=== PATIENT | male | born 1970 | race Two or more races ===

== ENCOUNTER 2024-04-11 09:39 | Emergency (ER) | payer MEDICAID, SELFPAY ==
[2024-04-11 09:50] VITALS: BP 161/92; PULSE 82; RESP 18; TEMP 36.8; O2SAT 98; BMI 24.4
--- NOTE | 2024-04-11 09:58 | PD.EDSKIN ---
ED Skin Abcess FB-RME/HPI General Chief complaint: Skin/Abscess/Foreign Body Stated complaint: I THINK I HAVE A STAPH INFECTION Time Seen by Provider: 04/11/24 09:40 Arrival date/time: 04/11/24 09:39 53-year-old male presents to the emergency department today stating I think I have a staph infection patient reports sores to his left leg Limitations: no limitations Related Data Previous Rx's ?Medication ?Instructions ?Recorded albuterol sulfate 90 mcg/actuation 2 puff inhalation Q6H PRN 04/19/17 aerosol inhaler shortness of breath or wheezing #18 grams loratadine 10 mg tablet 10 mg PO QDAY PRN allergy symptoms 04/19/17 #30 tabs promethazine-DM 6.25 mg-15 mg/5 mL 5 ml PO Q6H PRN cough #118 mL 04/19/17 oral syrup naproxen 500 mg tablet 500 mg PO BID #20 tabs 12/04/17 clindamycin HCl 300 mg capsule 300 mg PO TID 7 days #21 caps 04/11/24 ibuprofen 800 mg tablet 800 mg PO TID PRN pain #30 tabs 04/11/24 mupirocin 2 % topical ointment 1 applic topical TID 10 days #22 04/11/24 grams Allergies Allergy/AdvReac Type Severity Reaction Status Date / Time Penicillins Allergy Unknown HIVES Unverified 12/04/17 12:18 Review of Systems Review of Systems Systems Reviewed: All systems reviewed, normal except as documented Constitutional Constitutional: Reports system reviewed and no additional complaints, except as documented, Denies fever(s) and Denies headache(s) Eyes Eyes: Reports system reviewed and no additional complaints, except as documented and Denies blurry vision ENT Ears, Nose, Mouth, and Throat: Reports system reviewed and no additional complaints, except as documented, Denies headache(s), Denies nasal congestion and Denies nasal discharge Cardiovascular Cardiovascular: Reports system reviewed and no additional complaints, except as documented, Denies chest pain and Denies dyspnea Respiratory Respiratory: Reports system reviewed and no additional complaints, except as documented, Denies chest congestion, Denies cough and Denies dyspnea Gastrointestinal Gastrointestinal: Reports system reviewed and no additional complaints, except as documented and Denies abdominal pain Integumentary/Breasts Skin/Breast: Reports system reviewed and no additional complaints, except as documented, Denies rash and Reports other (Skin sores left leg) Neurologic Neurologic: Reports system reviewed and no additional complaints, except as documented, Reports as per HPI and Denies headache(s) Past Medical History Past Medical History NEUROLOGIC: Negative Neurological Disorders CARDIAC: Negative Cardiac Disorders Social History SMOKING STATUS: Never smoker SUBSTANCE USE: marijuana ED Exam General Limitations: Present no limitations General appearance: Present alert and in no apparent distress Head Head exam: Present atraumatic Eye Eye exam: Present normal appearance, PERRL and EOMI ENT ENT exam: Present normal exam, normal oropharynx and mucous membranes moist Neck Neck exam: Present normal inspection, full ROM and trachea midline Chest Chest inspection: Present normal inspection and symmetric chest wall rise Respiratory Respiratory exam: Present normal lung sounds bilaterally Cardiovascular Cardiovascular exam: Present regular rate, normal rhythm and normal heart sounds Abdominal Exam Abdominal exam: Present soft and normal bowel sounds Extremities Exam Extremities exam: Present normal inspection and full ROM Back Exam Back exam: Present normal inspection and full ROM Neurological Exam Neurological exam: Present alert, oriented X3 and CN II-XII intact Psychiatric Psychiatric exam: Present normal affect and normal mood Skin Skin exam: Present warm, dry and other (Skin sores left leg) Course Quality Measures none Vital Signs Vital signs: Vital Signs Temperature 98.3 F 04/11/24 09:50 Pulse Rate 82 04/11/24 09:50 Respiratory Rate 18 04/11/24 09:50 Blood Pressure 161/92 H 04/11/24 09:50 Pulse Oximetry (%) 98 04/11/24 09:50 Oxygen Delivery Method Room Air 04/11/24 09:50 O2 saturation 98% room air within normal limits Skin / Abscess / Foreign Body MDM Narrative MDM Narrative:: 53-year-old male presents to the emergency department today stating I think I have a staph infection patient reports sores to his left leg On exam patient well-appearing patient does not appear ill or toxic in no acute distress On exam patient appears to have skin sores which are infectious patient will be treated with course of antibiotics Patient discharged home in no distress to follow-up with primary care doctor in the next 24 to 48 hours and for any worsening symptoms to return to the ER immediately Patient data External records reviewed:: [facility] previous records Clinical information provided by:: patient Social determinants that could affect healthcare access:: none Patient has the following chronic illnesses:: None How is presenting disease/condition affected by chronic disease/condition?: no chronic disease Evaluation data The following diagnostics were reviewed and interpreted by me:: other (specify) (N/A) Lab and/or radiology exams considered but not ordered:: Consider not ordered Interpretation Summary: N/A Medications / Prescriptions Medications or Prescriptions considered but not ordered:: Given Medication administrations:: Given Consultations Consultation(s) initiated? (list below): No Diagnosis Skin/Abscess Differential Diagnosis: abscess of skin or subcutaneous tissue, urticaria, cellulitis and insect bites Most likely diagnosis given after review of the tests above:: Skin sore Admission Indicated Admission indicated?: not indicated Admission Request Was there a request for admission?: No Disposition Plan Disposition Plan: Discharge Discharge Attestation Discharge Attestation: The patient and all family members were given an opportunity to ask questions and understood the discharge instructions. Discharge instructions specifically effects, indications for sooner follow up or return to the emergency department, and the expected course of current diagnosis. Patient condition: Stable Discharge Plan Plan Patient Disposition: HOME (Self Care) Disposition Comment: Stable Prescriptions/Referrals Prescriptions/Med Rec: New clindamycin HCl 300 mg capsule 300 mg PO TID 7 Days Qty: 21 0RF ibuprofen 800 mg tablet 800 mg PO TID PRN (Reason: pain) Qty: 30 0RF mupirocin 2 % ointment 1 applic topical TID 10 Days Qty: 22 0RF No Action promethazine-DM 6.25-15 mg/5 mL syrup 5 ml PO Q6H PRN (Reason: cough) Qty: 118 0RF albuterol sulfate 90 mcg/actuation HFA aerosol inhaler 2 puff INH Q6H PRN (Reason: shortness of breath or wheezing) Qty: 18 0RF Rx Instructions: administer with spacer loratadine 10 mg tablet 10 mg PO QDAY PRN (Reason: allergy symptoms) Qty: 30 0RF naproxen 500 mg tablet 500 mg PO BID Qty: 20 0RF Problem List Clinical Impression: Skin sore Patient/Caregiver Discharge Instructions Additional Instructions: Please follow up with your primary care doctor in the next 24-48hrs for any worsening symptoms return here immediately Print Language: Indian Stand Alone Forms: Shanna Award Info., Patient Portal Info Letter PA/[employer] GENERAL Supervising Physician PA/LUIS Supervising Physician: Dr. Degroot
== END 2024-04-11 10:45 | disposition home or self-care (01) ==
PROVIDERS: Emergency Provider Emergency Medicine; PCP Family Medicine
DX: L98.9 Disorder of the skin and subcutaneous tissue, unspecified (principal)
CPT/HCPCS: 99281

== ENCOUNTER 2024-06-19 07:35 | Emergency (ER) | payer MEDICAID, SELFPAY ==
[2024-06-19 07:56] VITALS: BP 132/91; PULSE 66; RESP 16; TEMP 37.1; O2SAT 97
[2024-06-19 07:57] VITALS: BMI 25.0
--- NOTE | 2024-06-19 08:05 | PD.EDMALE ---
ED Male Genitalurinary RME/HPI General Chief complaint: Urogenital-Male Stated complaint: GENITAL AREA PAIN Time Seen by Provider: 06/19/24 07:45 Source: patient Arrival date/time: 06/19/24 07:35 53-year-old male with no known medical history presents to the emergency room with a chief complaint of wanting an STD check. Patient states he is having irritation and had discharge a couple of days ago. Mode of arrival: ambulatory Limitations: no limitations Related Data Previous Rx's ?Medication ?Instructions ?Recorded albuterol sulfate 90 mcg/actuation 2 puff inhalation Q6H PRN 04/19/17 aerosol inhaler shortness of breath or wheezing #18 grams loratadine 10 mg tablet 10 mg PO QDAY PRN allergy symptoms 04/19/17 #30 tabs promethazine-DM 6.25 mg-15 mg/5 mL 5 ml PO Q6H PRN cough #118 mL 04/19/17 oral syrup naproxen 500 mg tablet 500 mg PO BID #20 tabs 12/04/17 ibuprofen 800 mg tablet 800 mg PO TID PRN pain #30 tabs 04/11/24 Allergies Allergy/AdvReac Type Severity Reaction Status Date / Time Penicillins Allergy Unknown HIVES Verified 06/19/24 09:38 Review of Systems Review of Systems Systems Reviewed: All systems reviewed, normal except as documented Constitutional Constitutional: Reports system reviewed and no additional complaints, except as documented, Denies fatigue, Denies fever(s), Denies headache(s) and Denies weakness Eyes Eyes: Reports system reviewed and no additional complaints, except as documented, Denies blurry vision and Denies change in vision ENT Ears, Nose, Mouth, and Throat: Reports system reviewed and no additional complaints, except as documented, Denies otalgia, Denies headache(s), Denies nasal congestion, Denies throat swelling and Denies vertigo Cardiovascular Cardiovascular: Reports system reviewed and no additional complaints, except as documented, Denies chest pain, Denies dyspnea and Denies dyspnea on exertion Respiratory Respiratory: Reports system reviewed and no additional complaints, except as documented, Denies chest congestion, Denies cough, Denies dyspnea, Denies dyspnea on exertion and Denies wheezing Gastrointestinal Gastrointestinal: Reports system reviewed and no additional complaints, except as documented, Denies abdominal pain, Denies cramping, Denies nausea and Denies vomiting Genitourinary Genitourinary: Reports system reviewed and no additional complaints, except as documented, Reports dysuria, Denies hematuria and Reports penile discharge Musculoskeletal Musculoskeletal: Reports system reviewed and no additional complaints, except as documented and Denies back pain Integumentary/Breasts Skin/Breast: Reports system reviewed and no additional complaints, except as documented and Denies wounds Neurologic Neurologic: Reports system reviewed and no additional complaints, except as documented, Denies confusion, Denies headache(s), Denies lack of coordination, Denies vertigo and Denies weakness Psychiatric Psychiatric: Reports system reviewed and no additional complaints, except as documented, Denies anxiety, Denies confusion, Denies depression, Denies paranoia, Denies suicidal ideation and Denies tactile hallucinations Endocrine Endocrine: Reports system reviewed and no additional complaints, except as documented and Denies fatigue Hematologic/Lymphatic Hematologic/Lymphatic: Reports system reviewed and no additional complaints, except as documented and Denies lymphadenopathy Allergic/Immunologic Allergic/Immunologic: Reports system reviewed and no additional complaints, except as documented, Denies throat swelling, Denies urticaria and Denies wheezing Past Medical History Past Medical History NEUROLOGIC: Negative Neurological Disorders CARDIAC: Negative Cardiac Disorders Social History SMOKING STATUS: Current some day smoker SUBSTANCE USE: marijuana ED Exam General Limitations: Present no limitations General appearance: Present alert and in no apparent distress Head Head exam: Present atraumatic Eye Eye exam: Present normal appearance, PERRL and EOMI ENT ENT exam: Present normal exam, normal oropharynx and mucous membranes moist Neck Neck exam: Present normal inspection, full ROM and trachea midline Chest Chest inspection: Present normal inspection and symmetric chest wall rise Respiratory Respiratory exam: Present normal lung sounds bilaterally Cardiovascular Cardiovascular exam: Present regular rate, normal rhythm and normal heart sounds Abdominal Exam Abdominal exam: Present soft and normal bowel sounds Extremities Exam Extremities exam: Present normal inspection and full ROM Back Exam Back exam: Present normal inspection and full ROM Neurological Exam Neurological exam: Present alert, oriented X3 and CN II-XII intact Psychiatric Psychiatric exam: Present normal affect and normal mood Skin Skin exam: Present warm, dry, intact and normal color Course Quality Measures none Orders Category Date Time Status Chlamydia/GC/TV - PCR Stat Lab 06/19/24 08:00 Ordered Syphilis Stat Lab 06/19/24 Ordered Urinalysis, C/S if Indicated Stat Lab 06/19/24 08:00 Completed Azithromycin Po [Zithromax PO] Med 06/19/24 09:28 Discontinued 1,000 mg PO X1 ONE cefTRIAXone [Rocephin] 1,000 mg Med 06/19/24 09:29 Discontinued Lidocaine 1% 20 ml [Xylocaine 1% 20 ML] 2.1 ml IM X1 Vital Signs Vital signs: Vital Signs Temperature 98.7 F 06/19/24 07:56 Pulse Rate 66 06/19/24 07:56 Respiratory Rate 16 06/19/24 07:56 Blood Pressure 132/91 H 06/19/24 07:56 Pulse Oximetry (%) 97 06/19/24 07:56 Oxygen Delivery Method Room Air 06/19/24 07:56 O2 saturation 97% within normal limits Urogenital - Male MDM Narrative MDM Narrative:: 53-year-old male with no known medical history presents to the emergency room with a chief complaint of wanting an STD check. Patient states he is having irritation and had discharge a couple of days ago. Patient is hemodynamically stable and in no apparent distress. Patient denies any sores peeling or discharge at this time. Patient gave a urine sample, but during reevaluation a GC and chlamydia test tube was not sent to the lab. Patient's blood was also not drawn for syphilis. Patient states he does not want to wait and would like to leave. I treated him prophylactically and told him if his symptoms continue to please return to the emergency room immediately Patient was discharged and educated to follow-up with primary care provider in the next 24 to 48 hours and return to the emergency room for any evidence of worsening signs or symptoms Patient data External records reviewed:: [facility] previous records Clinical information provided by:: patient Social determinants that could affect healthcare access:: none Patient has the following chronic illnesses:: No chronic illness How is presenting disease/condition affected by chronic disease/condition?: no chronic disease Evaluation data The following diagnostics were reviewed and interpreted by me:: lab results and radiology exam(s) Lab and/or radiology exams considered but not ordered:: Labs and radiology exams considered and ordered Interpretation Summary: N/A Medications / Prescriptions Medications or Prescriptions considered but not ordered:: Medication given Medication administrations:: Medication Administration History Discontinued Medications Azithromycin (Azithromycin 250 Mg Tablet) 1,000 mg PO X1 ONE Stop: 06/19/24 09:29 Last Admin: 06/19/24 09:51 Dose: 1,000 mg Documented By: LUPIS Ceftriaxone Sodium 1,000 mg/ (Lidocaine HCl 2.1 ml) 0 mg IM X1 ONE Stop: 06/19/24 09:30 Last Admin: 06/19/24 09:54 Dose: 1,000 mg Documented By: LUPIS Medication given Consultations Consultation(s) initiated? (list below): No Diagnosis Urogenital Male Differential Diagnosis: urinary tract infection, urethritis, epididymitis, acute retention of urine and other (Chlamydia/gonorrhea/syphilis) Most likely diagnosis given after review of the tests above:: Dysuria Admission Indicated Admission indicated?: not indicated Admission Request Was there a request for admission?: No Disposition Plan Disposition Plan: Discharge Discharge Attestation Discharge Attestation: The patient and all family members were given an opportunity to ask questions and understood the discharge instructions. Discharge instructions specifically effects, indications for sooner follow up or return to the emergency department, and the expected course of current diagnosis. Patient condition: Stable Discharge Plan Plan Patient Disposition: HOME (Self Care) Disposition Comment: Stable Prescriptions/Referrals Prescriptions/Med Rec: No Action promethazine-DM 6.25-15 mg/5 mL syrup 5 ml PO Q6H PRN (Reason: cough) Qty: 118 0RF albuterol sulfate 90 mcg/actuation HFA aerosol inhaler 2 puff INH Q6H PRN (Reason: shortness of breath or wheezing) Qty: 18 0RF Rx Instructions: administer with spacer loratadine 10 mg tablet 10 mg PO QDAY PRN (Reason: allergy symptoms) Qty: 30 0RF naproxen 500 mg tablet 500 mg PO BID Qty: 20 0RF ibuprofen 800 mg tablet 800 mg PO TID PRN (Reason: pain) Qty: 30 0RF Referrals: No Primary/Family,Physician [Primary Care Provider] - In 1 week Problem List Clinical Impression: Dysuria Patient/Caregiver Discharge Instructions Education Materials: ED Dysuria, Uncertain Cause (Adult) Additional Instructions: Please follow-up with your primary care provider in the next 24 to 40 hours. For any evidence of worsening signs or symptoms return to the emergency room immediately Print Language: Frisian Stand Alone Forms: Shanna Award Info., Patient Portal Info Letter PA/LUIS Supervising Physician PA/LUIS Supervising Physician: Dr. Quigley
[2024-06-19 08:32] LABS: Collection Type, Urine Clean Catch
[2024-06-19 08:37] LABS: Amorphous Crystals,Urine Present (Absent); Bacteria,Urine Rare; Bilirubin,Urine Negative (Negative); Blood,Urine Negative (Negative); Clarity,Urine Clear (Clear/Hazy); Color,Urine Yellow (Lt Yel-Yel); Culture Indicated,Urine Not Indicated; Glucose, Urine Negative (Negative); Hyaline Casts,Urine < 1 /hpf (0-1); Ketones,Urine Negative (Negative); Leukocyte Esterase,Urine Negative (Negative); Nitrite,Urine Negative (Negative); PH,Urine 5.5 (5.0-7.0); Protein,Urine Negative (Neg - Trace); RBC,Urine 2 /hpf (0-3); Specific Gravity,Urine 1.019 (1.001-1.035); Squamous Epithelial Cell,Urine 1 /hpf (0-5); Urobilinogen,Urine Negative mg/dL (0.0-1.0); WBC,Urine 1 /hpf (0-5)
[2024-06-19] MEDS: AZITHROMYCIN 250 MG TABLET 1000 MG PO (09:51)
[2024-06-19] MEDS: cefTRIAXone 1,000 MG, LIDOCAINE 1% 20 ML 2.1 ML IM (09:54)
[2024-06-19 10:35] VITALS: BP 143/89; PULSE 60; RESP 18; TEMP 36.7; O2SAT 96
== END 2024-06-19 10:37 | disposition home or self-care (01) ==
PROVIDERS: Nurse Practitioner Family; Emergency Provider Family Medicine
DX: R30.0 Dysuria (principal)
CPT/HCPCS: 81001; 86780; 87491; 87591; 87661; 96372; 99283; J0696; J3490; A9270

== ENCOUNTER 2024-11-03 12:47 | Emergency (ER) | payer MEDICAID, SELFPAY ==
[2024-11-03 12:47] VITALS: BMI 25.0
[2024-11-03 13:28] VITALS: BP 162/89; PULSE 73; RESP 20; TEMP 37.1; O2SAT 98
--- NOTE | 2024-11-03 13:35 | EDNOTE_ITS ---
ED Skin Abcess FB-RME/HPI General Chief complaint: Skin/Abscess/Foreign Body Stated complaint: RASH TO KNEE AND ARMS Time Seen by Provider: 11/03/24 12:56 Arrival date/time: 11/03/24 12:47 54-year-old male presents to the Emergency Department due to complaints of rash to his knees and his arms ongoing for last couple of weeks patient reports he saw his PCP who gave him hydrocortisone cream but he reports symptoms of not improved Limitations: no limitations Related Data Previous Rx's ?Medication ?Instructions ?Recorded albuterol sulfate 90 mcg/actuation 2 puff inhalation Q 6H PRN 04/19/17 aerosol inhaler shortness of breath or wheez ing #18 grams loratadine 10 mg tablet 10 mg PO QDAY PRN allergy sy mptoms 04/19/17 #30 tabs promethazine-DM 6.25 mg-15 mg/5 mL 5 ml PO Q6H PRN cou gh #118 mL 04/19/17 oral syrup naproxen 500 mg tablet 500 mg PO BID #20 tabs 12/04 ibuprofen 800 mg tablet 800 mg PO TID PRN pain #30 t abs 04/11/24 clindamycin HCl 300 mg capsule 300 mg PO TID 7 days #2 1 caps 11/03/24 ibuprofen 800 mg tablet 800 mg PO TID PRN pain #30 t abs 11/03/24 prednisone 20 mg tablet 20 mg PO BID 3 days #6 tabs 11/03/24 Allergies Allergy/AdvReac Type Severity Reaction Status Date / Time Penicillins Allergy Unknown HIVES Verified 11/03/24 12:50 Review of Systems Review of Systems Systems Reviewed: All systems reviewed, normal except as documented Constitutional Constitutional: Reports system reviewed and no additional complaints, except as documented, Denies fever(s) and Denies headache(s) Eyes Eyes: Reports system reviewed and no additional complaints, except as documented and Denies blurry vision ENT Ears, Nose, Mouth, and Throat: Reports system reviewed and no additional complaints, except as documented, Denies headache(s), Denies nasal congestion and Denies nasal discharge Cardiovascular Cardiovascular: Reports system reviewed and no additional complaints, except as documented, Denies chest pain and Denies dyspnea Respiratory Respiratory: Reports system reviewed and no additional complaints, except as documented, Denies chest congestion, Denies cough and Denies dyspnea Gastrointestinal Gastrointestinal: Reports system reviewed and no additional complaints, except as documented and Denies abdominal pain Integumentary/Breasts Skin/Breast: Reports system reviewed and no additional complaints, except as documented, Denies rash and Reports other (Rash bilateral lower extremities) Neurologic Neurologic: Reports system reviewed and no additional complaints, except as documented, Reports as per HPI and Denies headache(s) Past Medical History Past Medical History NEUROLOGIC: Negative Neurological Disorders CARDIAC: Negative Cardiac Disorders Social History SMOKING STATUS: Never smoker SUBSTANCE USE: marijuana ED Exam General Limitations: Present no limitations General appearance: Present alert and in no apparent distress Head Head exam: Present atraumatic Eye Eye exam: Present normal appearance, PERRL and EOMI ENT ENT exam: Present normal exam, normal oropharynx and mucous membranes moist Neck Neck exam: Present normal inspection, full ROM and trachea midline Chest Chest inspection: Present normal inspection and symmetric chest wall rise Respiratory Respiratory exam: Present normal lung sounds bilaterally Cardiovascular Cardiovascular exam: Present regular rate, normal rhythm and normal heart sounds Abdominal Exam Abdominal exam: Present soft and normal bowel sounds Extremities Exam Extremities exam: Present normal inspection and full ROM Back Exam Back exam: Present normal inspection and full ROM Neurological Exam Neurological exam: Present alert, oriented X3 and CN II-XII intact Psychiatric Psychiatric exam: Present normal affect and normal mood Skin Skin exam: Present warm, dry and rash Course Quality Measures none Vital Signs Vital signs: Vital Signs Temperature 98.7 F 11/03/24 13:28 Pulse Rate 73 11/03/24 13:28 Respiratory Rate 20 11/03/24 13:28 Blood Pressure 162/89 H 11/03/24 13:28 Pulse Oximetry (%) 98 11/03/24 13:28 Oxygen Delivery Method Room Air 11/03/24 13:28 O2 saturation 98% room air with normal limits Skin / Abscess / Foreign Body MDM Narrative MDM Narrative:: 54-year-old male presents to the Emergency Department due to complaints of rash to his knees and his arms ongoing for last couple of weeks patient reports he saw his PCP who gave him hydrocortisone cream but he reports symptoms of not improved On exam patient well-appearing patient does not appear toxic no acute distress Patient has a rash which appears to be nonspecific and most like an atopic dermatitis Patient discharged home in no distress to follow-up with primary care doctor in the next 24 to 48 hours and for any worsening symptoms to return to the ER immediately Patient data External records reviewed:: [facility] previous records Clinical information provided by:: patient Social determinants that could affect healthcare access:: none Patient has the following chronic illnesses:: None How is presenting disease/condition affected by chronic disease/condition?: no chronic disease Evaluation data The following diagnostics were reviewed and interpreted by me:: other (specify) (N/A) Lab and/or radiology exams considered but not ordered:: Considered not ordered Interpretation Summary: N/A Medications / Prescriptions Medications or Prescriptions considered but not ordered:: Given Medication administrations:: Given Consultations Consultation(s) initiated? (list below): No Diagnosis Skin/Abscess Differential Diagnosis: abscess of skin or subcutaneous tissue, dermatophytosis, urticaria, allergic reaction to drug and contact dermatitis Most likely diagnosis given after review of the tests above:: Atopic dermatitis Admission Indicated Admission indicated?: not indicated Admission Request Was there a request for admission?: No Disposition Plan Disposition Plan: Discharge Discharge Attestation Discharge Attestation: The patient and all family members were given an opportunity to ask questions and understood the discharge instructions. Discharge instructions specifically effects, indications for sooner follow up or return to the emergency department, and the expected course of current diagnosis. Patient condition: Stable Discharge Plan Plan Patient Disposition: HOME (Self Care) Discharge Disposition comment: Stable Prescriptions/Referrals Prescriptions/Med Rec: New clindamycin HCl 300 mg capsule 300 mg PO TID 7 Days Qty: 21 0RF ibuprofen 800 mg tablet 800 mg PO TID PRN (Reason: pain) Qty: 30 0RF prednisone 20 mg tablet 20 mg PO BID 3 Days Qty: 6 0RF No Action promethazine-DM 6.25-15 mg/5 mL syrup 5 ml PO Q6H PRN (Reason: cough) Qty: 118 0RF albuterol sulfate 90 mcg/actuation HFA aerosol inhaler 2 puff INH Q6H PRN (Reason: shortness of breath or wheezing) Qty: 18 0RF Rx Instructions: administer with spacer loratadine 10 mg tablet 10 mg PO QDAY PRN (Reason: allergy symptoms) Qty: 30 0RF naproxen 500 mg tablet 500 mg PO BID Qty: 20 0RF ibuprofen 800 mg tablet 800 mg PO TID PRN (Reason: pain) Qty: 30 0RF Problem List Clinical Impression: Atopic dermatitis Patient/Caregiver Discharge Instructions Education Materials: What Is Atopic Dermatitis? Additional Instructions: Please follow up with your primary care doctor in the next 24-48hrs for any worsening symptoms return here immediately Print Language: Greek Stand Alone Forms: Shanna Award Info., Patient Portal Info Letter PA/BUNKER WORKER Supervising Physician PA/BUNKER WORKER Supervising Physician: Dr. Murguia
== END 2024-11-03 16:17 | disposition home or self-care (01) ==
PROVIDERS: Emergency Provider Emergency Medicine; PCP Family Medicine
DX: L20.9 Atopic dermatitis, unspecified (principal)
CPT/HCPCS: 99282